=== PATIENT | male | born 1960 | race Hispanic/Latino ===

== ENCOUNTER 2017-04-26 19:54 | Emergency (ER) | payer MEDICARE ==
[2017-04-26 20:17] VITALS: BP 145/81; PULSE 68; RESP 18; TEMP 98; O2SAT 99
--- NOTE | 2017-04-26 20:53 | ED PDOC ---
Lower Extremity Pain/Injury Time Seen by Provider: 04/26/17 20:34 Chief Complaint (Nursing): Lower Extremity Problem/Injury Chief Complaint (Provider): Left ankle pain History Per: Patient History/Exam Limitations: no limitations Onset/Duration Of Symptoms: Days (x2) Current Symptoms Are (Timing): Still Present Additional Complaint(s): Winston is a 57 y/o male who presents to the ED for evaluation of a left ankle injury sustained yesterday. He states that at 3PM yesterday he injured the ankle while paddle boarding in [place]. Patient now has swelling, bruising, and pain to the left ankle and foot, and is unable to bear weight on the foot. He reports taking Ibuprofen around 10AM today with minimal relief. Of note, patient flew back from [place] today. Denies any calf tenderness. Past Medical History Reviewed: Historical Data, Nursing Documentation, Vital Signs Vital Signs: Last Vital Signs Temp 98 F 04/26/17 20:13 Pulse 68 04/26/17 20:13 Resp 18 04/26/17 20:13 BP 145/81 04/26/17 20:13 Pulse Ox 99 04/26/17 20:13 - Medical History PMH: HTN, Hypercholesterolemia - Surgical History Surgical History: Back Surgery Other surgeries: Left hand surgery - Family History Family History: States: No Known Family Hx - Living Arrangements Living Arrangements: With Family - Social History Current smoker - smoking cessation education provided: No Alcohol: Social Drugs: Denies - Home Medications Home Medications: Ambulatory Orders Medication Instructions Recorded oxyCODONE/Acetaminophen [Percocet 1 ea PO Q6H PRN #15 tab 04/26/17 5/325 mg Tab] - Allergies Allergies/Adverse Reactions: Allergies Allergy/AdvReac Type Severity Reaction Status Date / Time No Known Allergies Allergy Verified 04/26/17 20:13 Wells Criteria for PE - Wells Criteria for Pulmonary Embolism Clinical Signs and Symptoms of DVT: No P.E is #1 Diagnosis, or Equally Likely: No Heart Rate >100: No Immobilization at least 3 days;Surgery previous 4 weeks: No Previous, objectively diagnosed PE or DVT: No Hemoptysis: No Malignancy w/treatment within 6 months, or palliative: No Total Score: 0 Review of Systems ROS Statement: Except As Marked, All Systems Reviewed And Found Negative Musculoskeletal: Positive for: Foot Pain (left foot and ankle pain) Skin: Positive for: Bruising Physical Exam - Reviewed Nursing Documentation Reviewed: Yes Vital Signs Reviewed: Yes - Physical Exam Appears: Positive for: Well, Non-toxic, No Acute Distress Head Exam: Positive for: ATRAUMATIC, NORMAL INSPECTION, NORMOCEPHALIC Skin: Positive for: Normal Color. Negative for: Rash Eye Exam: Positive for: Normal appearance Cardiovascular/Chest: Positive for: Regular Rate, Rhythm Respiratory: Positive for: Normal Breath Sounds Extremity: Positive for: Tenderness (Moderate swelling and tenderness to the left lateral malleolus, and diffusely to the left foot), Other (Ecchymosis to left foot and ankle region). Negative for: Calf Tenderness Neurologic/Psych: Positive for: Alert, Oriented - Laboratory Results Result Diagrams: 04/26/17 22:55 04/26/17 22:55 - ECG Interpretation Of ECG: Sinus golden 57 bpm, no acute finding, reviewed by PA and ED attending. O2 Sat by Pulse Oximetry: 99 (RA) Pulse Ox Interpretation: Normal - Other Rad Left foot and ankle x-ray X-Ray: Interpreted by Me, Viewed By Me X-Ray Interpretation: comminuted displaced fracture of distal fibula Medical Decision Making Medical Decision Making: Time: 20:47 Initial Plan: --X-Ray Left Ankle --X-Ray Left Foot --Toradol injection IM Dr. Sow, podiatry resident at bedside, splint applied. Patient will require surgery, pre-op tests ordered. Patient was advised to follow up with PMD and then have surgery scheduled. Crutches given, rx percocet. Scribe Attestation: Documented by Rebecca Randall, acting as a scribe for Vickie Howe PA-C Provider Scribe Attestation: All medical record entries made by the Scribe were at my direction and personally dictated by me. I have reviewed the chart and agree that the record accurately reflects my personal performance of the history, physical exam, medical decision making, and the department course for this patient. I have also personally directed, reviewed, and agree with the discharge instructions and disposition. Disposition - Clinical Impression Clinical Impression: Fracture of distal fibula - Patient ED Disposition Is Patient to be Admitted: No Counseled Patient/Family Regarding: Studies Performed, Diagnosis, Need For Followup, Rx Given - Disposition Referrals: Podiatry Clinic [Outside] Disposition: Routine/Home Disposition Time: 23:21 Condition: STABLE Additional Instructions: Keep splint on at all times, take rx meds as directed as needed for pain. Follow up with primary care doctor for medical clearance. Follow up as directed with research contracts supervisor. Prescriptions: oxyCODONE/Acetaminophen [Percocet 5/325 mg Tab] 1 ea PO Q6H PRN #15 tab PRN Reason: Pain, Severe (8-10) Instructions: Ankle Fracture (ED), Crutch Instructions (ED), Splint Care (ED) Forms: [employer] ([place])
[2017-04-26 23:00] LABS: BASO # 0.1 K/uL (0.0-0.2); BASO % 0.7 % (0.0-2.0); EOS # 0.2 K/uL (0.0-0.7); EOS % 2.2 % (0.0-4.0); HEMATOCRIT 40.9 % (35.0-51.0); LYMPH # 2.4 K/uL (1.0-4.3); LYMPH % 24.6 % (20.0-40.0); MEAN CELL VOLUME 95.1 fl (80.0-94.0); MEAN CORPUSCULAR HEMOGLOBIN 31.8 pg (27.0-31.0); MEAN CORPUSCULAR HGB CONC 33.5 g/dL (33.0-37.0); MEAN PLATELET VOLUME 10.2 fl (7.2-11.7); MONO # 0.8 K/uL (0.0-0.8); MONO % 8.4 % (0.0-10.0); NEUT # 6.2 K/uL (1.8-7.0); NEUT % 64.1 % (50.0-75.0); RED CELL DISTRIBUTION WIDTH 12.8 % (11.5-14.5); WHITE BLOOD COUNT 9.7 K/uL (4.8-10.8)
--- NOTE | 2017-04-26 23:02 | CP.PCM.CON ---
History of Present Illness - History of Present Illness History of Present Illness: 57 y/o male with PMHx of HTN and Hyperlipidemia seen and evaluated at bedside in ED 1 day s/p left ankle fracture. Patient states that he was in [place] paddle boarding yesterday when his board hit the sand and he fell of the board and twisted the left ankle. Patient denies of seeking any medical attention while he was in [place]. Patient states that he has been keeping his left lower extremity elevated and icing it whenever he got the chance. Patient agrees to putting some weight on the left side occasionally but states that he really tried to avoid it as much as he could. Patient states that he has a lot of pain but has been managing it well. Patient states that pain is only noticeable when he tried to move the foot but if he leaves it in one position, the pain is manageable. Patient denies of any other injuries during the incident. Patient denies of any recent F/N/V/C/SOB/chest pain today. Patient denies of any other pedal complains at this time. PMHx: HTN, Hyperlipidemia PSHx: Hand surgery, Fusion of L4,5,S1 Allergies: N.K.D.A SHx: Denies smoking, occasional EtOH use, denies of any illicit drug usage Review of Systems - Constitutional Constitutional: As Per HPI Past Patient History - Past Social History Alcohol: Social Drugs: Denies - CARDIAC Hx Hypercholesterolemia: Yes Hx Hypertension: Yes - PSYCHIATRIC Hx Substance Use: No Meds Allergies/Adverse Reactions: Allergies Allergy/AdvReac Type Severity Reaction Status Date / Time No Known Allergies Allergy Verified 04/26/17 20:13 Physical Exam - Constitutional Appears: Well, Non-toxic, No Acute Distress - Extremities Exam Extremities exam: Positive for: joint swelling, normal capillary refill, tenderness, pedal pulses present. Negative for: calf tenderness Additional comments: Left Lower Extremity Focused Exam VASC: DP/PT pulses are palpable 2/4, Cap refill time: < 3 sec to all digits, Temp gradient: warm to cool from proximal to distal, non pitting edema noted surrounding the left ankle joint DERM: Ecchymosis noted on the medial and lateral aspect distal to the medial and lateral malleolus, no open lesions, no clinical suspicion of active infection NEURO: Protective sensation grossly intact ORTHO: Pain on palpation of the medial and lateral aspect of the ankle, unable to perform MMT due to patient guarding, Active ROM diminished during DF, inversion and eversion but able to perform approximately 5 degrees of plantarflexion, no pain on palpation of the calf - Neurological Exam Neurological exam: Alert, Oriented x3 - Psychiatric Exam Psychiatric exam: Normal Affect, Normal Mood Results - Vital Signs Recent Vital Signs: Last Vital Signs Temp 98 F 04/26/17 20:13 Pulse 68 04/26/17 20:13 Resp 18 04/26/17 20:13 BP 145/81 04/26/17 20:13 Pulse Ox 99 04/26/17 21:23 Assessment & Plan - Assessment and Plan (Free Text) Assessment: 57 y/o male with PMHx of HTN and hyperlipidemia seen and evaluated in ED 1 day s /p left ankle injury sustaining spiral displaced fibular fracture Plan: Patient seen and evaluated at bedside in ED Patient discussed in details with attending Dr. Daquan Hernandes reviewed - afebrile X-rays of the foot and ankle ordered/reviewed - Foot x-ray: no acute fracture, displacement or dislocation noted - Ankle x-ray: Spiral radiolucensy with posterior displacement of the distal fragment noted at the distal fibula indicating a displaced spiral fibular fracture. Patient placed in a cartwright compression and a posterior splint applied Patient given crutches and educated to remain NWB to the LLE Patient educated to keep the cast clean and dry Patient educated to keep the LLE elevated and to apply ice behind the knee Pain medication as per ED Patient educated the course of the treatment and educated that he will need surgery Patient demonstrated verbal understanding of the plan and is in agreement for the surgery CXR, EKG, CBC with diff, BMP, PT/INR and PTT ordered while in the ED Patient will need pre-op clearance from his PMD Patient will be scheduled for surgery possibly this Tuesday (05/02) Thank you for the podiatry consult and allowing to take part in patient care - Date & Time Date: 04/26/17 Time: 23:
[2017-04-26 23:09] LABS: PARTIAL THROMBOPLASTIN TIME 28.1 Seconds (25.6-37.1)
[2017-04-26 23:28] LABS: ALB/GLOB RATIO 1.5 (1.0-2.1); ALKALINE PHOSPHATASE 53 U/L (38-126); ALT/SGPT 56 U/L (21-72); AST/SGOT 37 U/L (17-59); BILIRUBIN,TOTAL 0.6 mg/dl (0.2-1.3); BLOOD UREA NITROGEN 19 mg/dl (9-20); CARBON DIOXIDE 26 mmol/L (22-30); CHLORIDE 106 mmol/L (98-107); GFR AFRICAN-AMERICAN > 60; GLUCOSE,RANDOM 92 mg/dL (75-110); POTASSIUM 3.9 MMOL/L (3.6-5.0); SODIUM 142 mmol/l (132-148)
--- NOTE | 2017-04-27 07:27 | CARD ---
APPROVED REPORT EKG Measurement Heart [id number] <Conclusion> Sinus bradycardia Otherwise normal ECG
--- NOTE | 2017-04-27 10:56 | RAD ---
PROCEDURE: Left Ankle Radiographs. HISTORY: Trauma COMPARISON: None FINDINGS: BONES: There is an acute comminuted mildly displaced fracture in the lateral malleolus with 3 mm lateral displacement and 3 mm posterior displacement. No significant angulation. JOINTS: Normal. No osteoarthritis. Ankle mortise maintained. Talar dome intact SOFT TISSUES: There is mild periarticular soft tissue swelling. OTHER FINDINGS: None. IMPRESSION: Acute comminuted mildly displaced fracture in the lateral malleolus with 3 mm lateral and posterior displacement. Mild periarticular soft tissue swelling
--- NOTE | 2017-04-27 11:04 | RAD ---
PROCEDURE: Left Foot Radiographs. HISTORY: trauma COMPARISON: None. FINDINGS: BONES: There is no acute displaced fracture or bone destruction. Bone alignment and mineralization are normal. JOINTS: Normal. SOFT TISSUES: Normal. OTHER FINDINGS: None. IMPRESSION: No acute fracture or dislocation.
== END 2017-04-26 23:44 | disposition home or self-care (01) ==
LOC: H.ER 19:54
DX: S82.832A Other fracture of upper and lower end of left fibula, initial encounter for closed fracture (principal); X58.XXXA Exposure to other specified factors, initial encounter; Y93.59 Activity, other involving other sports and athletics played individually
CPT/HCPCS: 29515; 71020; 73610; 73630; 80053; 85025; 85610; 85730; 93005; 96372; 99282; J1885

== ENCOUNTER 2017-05-18 07:55 | Day surgery (SDC) | payer MEDICARE ==
[2017-04-28 16:27] VITALS: BMI 30.1
--- NOTE | 2017-05-18 09:31 | CP.SDSHP ---
Same Day Surgery H & P - History Proposed Procedure: ORIF L fibula Pre-Op Diagnosis: Left fibular fracture - Allergies Allergies: Allergies No Known Allergies Allergy (Verified 04/26/17 20:13) - Physical Exam Vital Signs: Vital Signs 05/18/17 05/18/17 08:32 08:38 Temperature 98.1 F Pulse Rate 62 62 Respiratory 18 Rate Blood Pressure 121/76 O2 Sat by Pulse 97 Oximetry - {Optional Preform as Required} Integument: WNL Ortho: Other - Impression Pt. Evaluated Today:Candidate for Anesthesia & Procedure: Yes - Date & Time Date: 05/18/17 Time: 09:31 Short Stay Discharge - Short Stay Discharge Admitting Diagnosis/Reason for Visit: [id number] Disposition: HOME/ ROUTINE Referrals: Benjy Noyola MD [Primary Care Provider] -
[2017-05-18] MEDS ORDERED: Midazolam 2 MG/2 ML VIAL ONE (09:32)
[2017-05-18] MEDS ORDERED: Propofol 10 mg/ml Inj (20 ML) ONE (09:32)
[2017-05-18] MEDS ORDERED: ePHEDrine 50 mg/ml Inj ONE (09:32)
[2017-05-18] MEDS ORDERED: Rocuronium 10 mg/ml (5 ml) ONE (09:32)
[2017-05-18] MEDS ORDERED: Succinylcholine 200 mg/10 ml Inj IV ONE (09:33)
[2017-05-18] MEDS ORDERED: Phenylephrine 10 mg/ml Inj ONE (09:33)
--- NOTE | 2017-05-18 09:35 | CP.PCM.PN ---
Subjective - Date & Time of Evaluation Date of Evaluation: 05/18/17 Time of Evaluation: 09:33 - Subjective Subjective: 57 year old male was seen in [facility] for pre-operative evaluation for left ORIF of fibular fracture with Dr. Pickard today. Patient has been having pain in the area and has exhausted all conservative treatment and now opts for surgical intervention. NPO status confirmed. Patient is NAD and AAOx3, denies n/v/f/c/ sob/cp. Objective - Vital Signs/Intake and Output Vital Signs (last 24 hours): Temp Pulse Resp BP Pulse Ox 98.1 F 62 18 121/76 97 05/18/17 08:38 05/18/17 08:38 05/18/17 08:38 05/18/17 08:38 05/18/17 08:38 - Constitutional Appears: Well, Non-toxic, No Acute Distress - Extremities Exam Additional comments: Dressing is C/D/I to left foot and ankle CFT < 3 seconds to all digits Epicritic sensation grossly intact b/l - Neurological Exam Neurological Exam: Alert, Awake, Oriented x3 - Psychiatric Exam Psychiatric exam: Normal Affect, Normal Mood Assessment and Plan - Assessment and Plan (Free Text) Assessment: 57 year old male seen in [facility] for preoperative evaluation for ORIF L fibular fx Plan: Pt was seen and examined in [facility] Pt NPO status was confirmed All Pre-op testing and clearance was in the chart Pt has exhausted all conservative treatment at this time and is opting for surgical intervention Pt was explained procedure and post-operative course All pt's questions were answered to satisfaction No guarantees were made Pt understands all risks, benefits and complications of procedure Pt will follow-up with Dr. Pickard
[2017-05-18] MEDS ORDERED: Lidocaine 1% Inj (20ml) IJ ONE (09:37)
[2017-05-18] MEDS ORDERED: Bupivacaine 0.5% 50 ML IJ ONE (09:37)
[2017-05-18] MEDS ORDERED: ceFAZolin IV 1 gm in Dextrose 2 GM/100 ML BAG IVPB ONE (09:40)
[2017-05-18] MEDS ORDERED: Bupivacaine 0.5% Inj(30mL) ONE (09:40)
[2017-05-18] MEDS ORDERED: Sodium Chloride 0.9% 1,000 ML IV SCH (09:45)
[2017-05-18] MEDS ORDERED: Ropivacaine 0.5% 30ML IV ONE (09:46)
[2017-05-18] MEDS ORDERED: Lactated Ringer's 1,000 ML IV ONE ×2 (10:05→11:30)
[2017-05-18] MEDS ORDERED: Desflurane Inhalation Anesthetic Liq (240 ml) ONE (11:24)
[2017-05-18] MEDS ORDERED: Neostigmine Methylsulfate 2 MG/2 ML ML IV ONE (11:58)
[2017-05-18] MEDS ORDERED: HYDROmorphone 0.5 mg/0.5 ml ISec IVP PRN (12:29)
--- NOTE | 2017-05-18 12:31 | PCM.SURG1 ---
Surgeon's Initial Post Op Note - Surgeon's Notes Surgeon: Neeraj Dental Laboratory Assistant: Zakia PGY 3, Jermaine PGY 2 Type of Anesthesia: General LMA, Local Anesthesia Administered By: Chuy Pre-Operative Diagnosis: Left Fibular ankle fracture Operative Findings: See dictation Post-Operative Diagnosis: Same Operation Performed: Left Fibular ORIF Specimen/Specimens Removed: None Estimated Blood Loss: EBL {In ML}: 10 Blood Products Given: N/A Drains Used: No Drains Post-Op Condition: Good Date of Surgery/Procedure: 05/18/17 Time of Surgery/Procedure: 12:31
[2017-05-18] MEDS ORDERED: Oxycodone/Acetaminophen 5/325 mg Tab PO PRN ×2 (12:32)
--- NOTE | 2017-05-18 14:04 | RAD ---
PROCEDURE: Fluoroscopy 4 close reduction internal fixation HISTORY: LEFT TIB/FIB COMPARISON: 04/26/2017 preoperative examination TECHNIQUE: Standard protocol for this study/examination. FINDINGS: Total fluoroscopic time (continuous mode) utilized during the procedure: 64.3 seconds. IMPRESSION: Submitted images from the current procedure: 17.0
--- NOTE | 2017-05-18 14:14 | RAD ---
PROCEDURE: Left Ankle Radiographs. HISTORY: PACU LEFT ANKLE FRACTURE ORIF COMPARISON: Preoperative study 04/26/2017 FINDINGS: BONES: In stomach alignment of major fracture fragments distal fibula. No evidence of orthopedic hardware failure. JOINTS: Normal. No osteoarthritis. Ankle mortise maintained. Talar dome intact SOFT TISSUES: Normal. OTHER FINDINGS: None. IMPRESSION: Satisfactory postoperative status.
[2017-05-18 15:20] VITALS: BP 132/72; PULSE 68; RESP 20; TEMP 97.5; O2SAT 96
--- NOTE | 2017-05-20 09:03 | PCM.ANESB2 ---
Popliteal Nerve Block - Popliteal Nerve Block Date of Procedure: 05/18/17 Procedure Performed: Popliteal Nerve Block Left - Procedure Popliteal Nerve Block: This procedure was explained to the patient that it is for post-operative pain management. Consent was obtained after a thorough discussion with the patient regarding the benefits and possible complications of local anesthetic block of the sciatic nerve at the popliteal level. The patient was brought to the operating room and standard monitors are applied. Time-out was held with the circulating nurse to confirm the correct surgery and the appropriate block. Patient's operative leg was gently raised and supported and the groove in between the biceps femoris and vastus lateralis muscles was carefully palpated. The skin approximately 8cm above the popliteal crease was then marked. The ultrasound transducer was then applied to the posterior thigh approximately 8cm above the popliteal crease in the transverse plane and the sciatic nerve before its division was visualized lateral to the popliteal artery and in between the bicep femoris and semimembranosus/semitendinosus muscles. After identification, the lateral portion of the thigh was prepped with chloroprep solution. At this point, a # 21 gauge Stimuplex insulated 4 inch needle was inserted into pre-marked area and advanced in a perpendicular direction. The needle was inserted above the ultrasound transducer in-plane towards the sciatic nerve in a [id number] direction. Needle advancement was performed carefully under direct ultrasound visualization. Nerve stimulator was used and dorsiflexion of the __left___ foot was elicited at a current of __0.3___ MA. After repeated negative aspiration, __5__cc of __0.5___ % Ropivacaine was injected and this was flowed with ____25__ cc of ___0.5___% ____Ropivacaine ___. Under ultrasound guidance the local anesthetics were observed surrounding sciatic nerve . The patient tolerated the popliteal nerve block well with stable vital signs and was subsequently prepared for the surgery.
--- NOTE | 2017-05-24 08:52 | OP ---
PROCEDURE DATE: 05/18/2017 PREOPERATIVE DIAGNOSIS: Left foot fibular fracture. POSTOPERATIVE DIAGNOSIS: Left foot fibular fracture. PROCEDURES PERFORMED: Left foot fibula open reduction and internal fixation. SURGEON: Kaleb Pickard DPM CHANNEL PROCESS SUPERVISOR: Quinton Koehler DPM, PGY-3 TYPE OF ANESTHESIA: General sedation with popliteal block. ANESTHESIA ADMINISTERED BY: Yoel Martin MD INDICATIONS: The patient is a 57-year-old male with the above-mentioned diagnosis. The patient has exhausted all forms of conservative treatment at this time and wished to have surgical intervention for the conditions listed above. After careful explanation of risks, benefits and complications for the proposed procedure, the patient signed the consent form. All questions and concerns were addressed at this time. Prior to taking the patient to the OR, n.p.o. status was verified and preoperative antibiotics were given. DESCRIPTION OF PROCEDURE: The patient was brought to the operating room table and placed on the operating table in supine position. Pneumatic thigh tourniquet was placed on the patient's left thigh at 350 mmHg. Following induction of general sedation, the left ankle and leg was prepped and draped in normal sterile manner and the procedure began. PROCEDURE #1: Left foot fibula open reduction and internal fixation. At this time, attention was directed to the patient's left lateral ankle, where utilizing intraoperative fluoroscopy, first off, the fracture line was identified going from suprasyndesmotic area at the level of the ankle joint. At this time, utilizing #15 blade, roughly 4.5 cm long incision was made directly overlying the lateral aspect of fibula and lateral malleolus. This incision was then carried deep down to the level of the periosteum of the lateral fibula making sure to retract all vital neurovascular structures. All bleeders were ligated as necessary. Utilizing #15 blade, a periosteal incision was made and the fracture site was identified directly underneath the periosteum in the lateral malleolus. The periosteum was then freed medially and laterally, making sure to retract all vital neurovascular structures, and the peroneal tendons were rechecked plantarly as well to stay out of the operative filed. At this time, utilizing mild manual distraction, the fracture site was distracted, and with the use of Vallejo elevator and curettes, the fracture site was cleaned of all residual hemostasis and prior healing in the fracture site. This allowed the fracture to be free enough for reduction into good anatomical alignment and a temporary K-wire was transfixed across the fracture site. At this time, the C-arm was brought in and the fracture site was noted to be in good anatomical reduction, at a good anatomical length and non-malrotated, and the ankle joint was in perfect alignment without any step-off noticeable. At this time, a small 3.5 interfragmentary screw was placed across the fracture site in lag technique and the fracture site was compressed across. Following this, a one-third tubular plate was placed on the lateral aspect of the fracture site along the lateral fibula to provide support and the holes were filled with 3.5 cortical screws proximally and two 4.0 cancellous screws in the lateral malleolus. This was verified by C-arm to make sure the fracture site remained in good alignment to make sure that we did not penetrate into the ankle joint. Following this, final x-rays were taken to once again verify the exact positioning of the fracture site and noted a great reduction. The wound was then flushed with copious amounts of normal saline. The wound was then closed with 2-0, 3-0 Vicryl and 4-0 nylon in the normal sterile manner. POSTOPERATIVE CONDITION: The patient tolerated anesthesia and procedure well and was transported to the recovery room with vital signs stable and neurovascular status intact to the left foot and ankle. This patient will follow up with Dr. Pickard in his office as previously discussed with the patient. Quinton Koehler DPM
== END 2017-05-18 16:08 | disposition home or self-care (01) ==
LOC: H.OPSURG 07:55
PROVIDERS: ATTEND Podiatrist Foot & Ankle Surgery
DX: S82.892D Other fracture of left lower leg, subsequent encounter for closed fracture with routine healing (principal); X58.XXXD Exposure to other specified factors, subsequent encounter; E78.5 Hyperlipidemia, unspecified; I10 Essential (primary) hypertension
CPT/HCPCS: 27792; 73610; 76001; 97161; C1713; G8978; G8979; G8980; J0330; J0690; J2001; J2250; J2405; J2704; J2710; J3010; J7120